=== PATIENT | male | born 1995 | race Caucasian/White ===

== ENCOUNTER 2017-03-06 16:39 | Emergency (ER) | payer SELFPAY ==
[~2017-03-06 16:39] MED LIST: Sodium Chloride 0.9% 100 ML BAG ONE; Sodium Chloride Irrig Solution 250 ML BOT ONE
[2017-03-06] MEDS ORDERED: Bupivacaine PF 0.5% 30 ML VIAL ONE (16:58)
--- NOTE | 2017-03-06 17:33 | RAD ---
THREE VIEWS LEFT HAND 03/06/17 HISTORY: Injury after trauma. FINDINGS: There are transverse fractures with slight separation of fracture fragments involving the capitate a nd hamate. Fracture extends through the waist of the hamate and through the distal portion of the ca pitate bone. There is overlying subcutaneous soft tissue swelling present. No additional fracture is seen. There is no dislocation. IMPRESSION: Slightly , but nondisplaced fractures involving the left hamate and capitate bones. There i s overlying subcutaneous soft tissue swelling present. POS: [facility]
[2017-03-06] MEDS ORDERED: ceFAZolin Sodium 1 GM VIAL ONE (17:45)
[2017-03-06 18:10] LABS: ALT (SGPT) 15 U/L (0-55); AST (SGOT) 18 U/L (5-34); Albumin 4.4 g/dL (3.5-5.0); Alkaline Phosphatase 93 U/L (Less than 750); Anion Gap 16 mmol/L (10-20); BUN (Urea Nitrogen) 19 mg/dL (8.9-20.6); Bilirubin, Total 0.4 mg/dL (0.2-1.2); Calc. Creatinine Clearance 0 mL/min (70-130); Calcium 9.4 mg/dL (7.8-10.44); Carbon Dioxide 22 mmol/L (22-29); Chloride 105 mmol/L (98-107); Estimated GFR-MDRD 89; Globulin 2.3 g/dL (2.4-3.5); Glucose 94 mg/dL (70-105); Potassium 3.6 mmol/L (3.5-5.1); Protein, Total 6.7 g/dL (6.0-8.3); Sodium 139 mmol/L (136-145)
[2017-03-06 18:11] LABS: #Basophils 0.1 thou/uL (0.0-0.2); #Eosinphils 0.2 thou/uL (0.0-0.7); #Lymphocytes 2.4 thou/uL (1.20-3.40); #Monocytes 0.6 thou/uL (0.11-0.59); #Neutrophils 3.9 thou/uL (1.40-6.50); %Basophils 1.3 % (0.0-1.0); %Eosinophils 2.2 % (0.0-10.0); %Lymphocytes 34.2 % (28.0-48.0); %Monocytes 7.7 % (0.0-4.0); %Neutrophils 54.7 % (31.0-61.0); Hemoglobin 14.5 g/dL (14.0-18.0); Mean Corpuscular HGB CONC 34.8 g/dL (32.0-36.0); Mean Corpuscular Hemoglobin 29.4 pg (25.0-35.0); Mean Corpuscular Volume 84.5 fl (77.0-87.0); Mean Platelet Volume 7.7 fL (7.4-10.4); Platelet Count 197 thou/uL (130-400); RBC Distribution Width 11.7 % (11.5-14.5); Red Blood Cell (RBC) Count 4.93 mill/uL (4.00-5.20); White Blood Cell (WBC) Count 7.1 thou/uL (4.8-10.8)
[2017-03-06] MEDS ORDERED: Triple Antibiotic Oint 1 GM Packet ONE (18:31)
== END 2017-03-06 19:00 | disposition home or self-care (01) ==
LOC: MADERS 16:39
DX: S62.135A Nondisplaced fracture of capitate [os magnum] bone, left wrist, initial encounter for closed fracture (principal); S62.145A Nondisplaced fracture of body of hamate [unciform] bone, left wrist, initial encounter for closed fracture; S61.412A Laceration without foreign body of left hand, initial encounter; W27.8XXA Contact with other nonpowered hand tool, initial encounter; Y92.009 Unspecified place in unspecified non-institutional (private) residence as the place of occurrence of the external cause
CPT/HCPCS: 12002; 36415; 80053; 85025; 96365; J0690; J7050; S0020

== ENCOUNTER 2019-08-02 08:26 | Emergency (ER) | payer SELFPAY | END 2019-08-02 09:05 | disposition home or self-care (01) | LOC: MADERS 08:26 | DX: S03.2XXA Dislocation of tooth, initial encounter (principal); S00.83XA Contusion of other part of head, initial encounter; J01.90 Acute sinusitis, unspecified; Y04.8XXA Assault by other bodily force, initial encounter | CPT/HCPCS: 99283 ==

== ENCOUNTER 2024-11-29 20:57 | Emergency (ER) | payer SELFPAY ==
[2024-11-29] MEDS ORDERED: Benzonatate 100 MG CAP ONE (21:16)
[2024-11-29] MEDS ORDERED: Albuterol 200 PUFF (6.7GM INHALER) ONE (21:16)
[2024-11-29] MEDS ORDERED: Oxymetazoline HCl 0.05% (30 ML BOT) ONE (21:17)
== END 2024-11-29 21:56 | disposition home or self-care (01) ==
LOC: MADERS 20:57
DX: J10.1 Influenza due to other identified influenza virus with other respiratory manifestations (principal); B00.9 Herpesviral infection, unspecified
CPT/HCPCS: 71046; 87428

== ENCOUNTER 2024-12-05 06:44 | Emergency (ER) | payer SELFPAY ==
[2024-12-05] MEDS ORDERED: guaiFENesin ER 600 MG TAB ONE (07:22)
== END 2024-12-05 07:38 | disposition home or self-care (01) ==
LOC: MADERS 06:44
DX: R04.2 Hemoptysis (principal); Z87.891 Personal history of nicotine dependence
CPT/HCPCS: 99284